=== PATIENT | female | born 1990 | race Caucasian/White ===

== ENCOUNTER 2020-08-22 19:59 | Emergency (ER) | payer OTHER ==
[~2020-08-22] VITALS: Ht 177.8 cm; Wt 146.0 kg
[~2020-08-22 19:59] MED LIST: ACET-683 PO; IBUP80TA PO; PRENTAB9 PO
[2020-08-22 23:27] VITALS: BP 136/92
== END 2020-08-22 23:28 | disposition home or self-care (01) ==
LOC: M ED 19:59
DX: B34.8 Other viral infections of unspecified site (principal)

== ENCOUNTER 2020-10-25 03:22 | Emergency (ER) | payer OTHER ==
[~2020-10-25] VITALS: Ht 177.8 cm; Wt 139.7 kg
[2020-10-25] MEDS ORDERED: BUPR75TA5 PO (03:42)
[2020-10-25 04:18] LABS: BASO % 0.5 % (0.0-1.0); EOS % 0.4 % (0.0-3.0); HEMATOCRIT 44.8 % (36.0-47.0); HEMOGLOBIN 13.8 g/dl (12.0-15.5); LYMPH # 3.1 10^3/uL (1.5-5.0); LYMPH % 38.1 % (24.0-44.0); MEAN CORPUSCULAR HEMOGLOBIN 25.5 pg (27.0-33.0); MEAN CORPUSCULAR HGB CONC 30.8 g/dl (32.0-36.5); MEAN CORPUSCULAR VOLUME 82.8 fl (80.0-96.0); MONO # 0.7 10^3/uL (0.0-0.8); MONO % 8.7 % (2.0-8.0); NEUTROPHILS # 4.2 10^3/uL (1.5-8.5); NEUTROPHILS % 51.9 % (36.0-66.0); PLATELET COUNT, AUTOMATED 297 10^3/uL (150-450); RED BLOOD COUNT 5.41 10^6/uL (4.00-5.40); WHITE BLOOD COUNT 8.1 10^3/uL (4.0-10.0)
[2020-10-25 04:40] LABS: ALBUMIN 3.6 GM/DL (3.2-5.2); ALT/SGPT 30 U/L (12-78); BILIRUBIN,DIRECT 0.1 MG/DL (0.0-0.2); BILIRUBIN,TOTAL 0.4 MG/DL (0.2-1.0); BLOOD UREA NITROGEN 12 MG/DL (7-18); CALCIUM LEVEL 9.1 MG/DL (8.5-10.1); CARBON DIOXIDE LEVEL 26 MEQ/L (21-32); CHLORIDE LEVEL 108 MEQ/L (98-107); GLOMERULAR FILTRATION RATE > 60.0 (>60); GLUCOSE, FASTING 89 MG/DL (70-100); LIPASE 206 U/L (73-393); POTASSIUM SERUM 3.8 MEQ/L (3.5-5.1); SODIUM LEVEL 141 MEQ/L (136-145); TOTAL PROTEIN 7.3 GM/DL (6.4-8.2)
[2020-10-25 05:01] LABS: HCG, SERUM QUALITATIVE NEGATIVE (NEGATIVE)
[2020-10-25] MEDS ORDERED: ONDANSETRON 4MG/2ML VIAL IV ONE (07:10)
--- NOTE | 2020-10-25 09:17 | REPVR ---
PROCEDURE INFORMATION: Exam: US Abdomen, Limited; Right Upper Quadrant Exam date and time: 10/25/2020 7:53 AM Age: 30 years old Clinical indication: Abdominal pain; Additional info: Suspected biliary colic TECHNIQUE: Imaging protocol: US abdomen. Real time ultrasound with image documentation. Limited exam focused on the right upper quadrant. COMPARISON: CT ABD PELVIS W/O CONTRAST 10/30/2015 1:32 PM FINDINGS: Liver: Normal. No masses. Normal vascular flow in the main portal vein towards the liver. Gallbladder: Normal. No gallstones. The gallbladder wall is normal. Common bile duct: The common bile duct is normal. No choledocholithiasis. The common bile duct measures 4.2 mm in diameter. Pancreas: Visualized pancreas is unremarkable. Right kidney: Normal right kidney measuring 11.7 x 4.7 x 5.1 cm. No mass. No hydronephrosis. Free fluid: No significant free fluid is seen in the right upper quadrant abdomen. IMPRESSION: No acute findings. Electronically signed by: Chris Ng On 10/25/2020 09:16:46 AM
[2020-10-25 09:31] VITALS: BP 118/56
--- NOTE | 2020-10-25 15:26 | ECGEPIP ---
[facility] - ED Test Date: 2020-10-25 Pat Name: BEVERLEY HOLLINGSWORTH Department: Room: - Gender: Female [employer] Machine: CHRISTEN : 1990 Requested By: JUAN NELSON Order Number: [id number] Reading MD: Lex Boyer Measurements Intervals Bath Rate: 67 P: 24 SD: 130 QRS: 3 QRSD: 90 T: 7 QT: 400 QTc: 422 Interpretive Statements Sinus rhythm with marked sinus arrhythmia Comparison tracing not on file Electronically Signed on 10-25-2020 15:26:09 EDT by Lex Boyer
== END 2020-10-25 09:59 | disposition home or self-care (01) ==
LOC: M ED 03:22
DX: R10.9 Unspecified abdominal pain (principal); R11.2 Nausea with vomiting, unspecified
CPT/HCPCS: 76705; 80048; 80076; 81001; 83690; 84703; 85025; 93005; 96374; 99285; J2405

== ENCOUNTER → 2021-03-02 | Outpatient (CLI) | payer OTHER ==
[~2021-03-02] MED LIST changes: +BUPR75TA5 PO
[2021-03-02 14:26] LABS: BASO % 0.3 % (0.0-1.0); EOS % 0.4 % (0.0-3.0); HEMATOCRIT 43.8 % (36.0-47.0); HEMOGLOBIN 13.6 g/dl (12.0-15.5); LYMPH # 2.9 10^3/uL (1.5-5.0); LYMPH % 29.1 % (24.0-44.0); MEAN CORPUSCULAR HEMOGLOBIN 26.5 pg (27.0-33.0); MEAN CORPUSCULAR HGB CONC 31.1 g/dl (32.0-36.5); MEAN CORPUSCULAR VOLUME 85.4 fl (80.0-96.0); MONO # 0.8 10^3/uL (0.0-0.8); NEUTROPHILS # 6.2 10^3/uL (1.5-8.5); PLATELET COUNT, AUTOMATED 308 10^3/uL (150-450); RED BLOOD COUNT 5.13 10^6/uL (4.00-5.40)
[2021-03-02 14:57] LABS: C REACTIVE PROTEIN QUANTITATIV 0.88 MG/DL (0.00-0.30); RHEUMATOID FACTOR QUANT < 10.0 IU/ML (<15.0)
[2021-03-02 15:21] LABS: ERYTHROCYTE SEDIMENTATION RATE 26 mm/hr (0-20)
[2021-03-03 19:07] LABS: ANTINUCLEAR ANTIBODIES DIRECT Negative (Negative); Lyme Disease IgG/IgM Antibodie <0.91 ISR (0.00-0.90); Lyme Disease IgM Ab Quantitati <0.80 index (0.00-0.79)
== END ==
LOC: M PLALAB 11:39
PROVIDERS: ATTEND Orthopaedic Surgery
DX: M25.562 Pain in left knee (principal)

== ENCOUNTER 2021-12-18 16:43 | Emergency (ER) | payer OTHER ==
[~2021-12-18] VITALS: Ht 175.3 cm; Wt 134.6 kg
[2021-12-18 16:44] VITALS: BP 109/69
[2021-12-18] MEDS ORDERED: OMEP40CA5 (17:11)
[2021-12-18] MEDS ORDERED: ONDA-83 (17:11)
[2021-12-18 18:37] LABS: BASO % 0.4 % (0.0-1.0); EOS % 0.4 % (0.0-3.0); HEMATOCRIT 42.2 % (36.0-47.0); HEMOGLOBIN 13.4 g/dl (12.0-15.5); LYMPH # 2.2 10^3/uL (1.5-5.0); LYMPH % 27.4 % (24.0-44.0); MEAN CORPUSCULAR HEMOGLOBIN 28.3 pg (27.0-33.0); MEAN CORPUSCULAR HGB CONC 31.8 g/dl (32.0-36.5); MONO # 0.7 10^3/uL (0.0-0.8); MONO % 8.9 % (2.0-8.0); NEUTROPHILS # 4.9 10^3/uL (1.5-8.5); NEUTROPHILS % 62.8 % (36.0-66.0); PLATELET COUNT, AUTOMATED 215 10^3/uL (150-450); RED BLOOD COUNT 4.74 10^6/uL (4.00-5.40); WHITE BLOOD COUNT 7.8 10^3/uL (4.0-10.0)
[2021-12-18 18:58] LABS: RBC, URINE 0-1 /hpf (0-3); SQUAMOUS EPITHELIAL CELL URINE LARGE AMOUNT /hpf (SMALL AMT)
[2021-12-18 18:59] LABS: BACTERIA, URINE NONE SEEN; HYALINE CAST, URINE NONE SEEN /lpf (0-1); MUCUS, URINE LARGE AMOUNT (NEGATIVE)
[2021-12-18 19:16] LABS: ALBUMIN 3.4 GM/DL (3.2-5.2); ALT/SGPT 156 U/L (12-78); BILIRUBIN,DIRECT 0.4 MG/DL (0.0-0.2); BILIRUBIN,TOTAL 0.7 MG/DL (0.2-1.0); BLOOD UREA NITROGEN 5 MG/DL (7-18); CALCIUM LEVEL 8.8 MG/DL (8.5-10.1); CARBON DIOXIDE LEVEL 26 MEQ/L (21-32); CHLORIDE LEVEL 107 MEQ/L (98-107); CREATININE FOR GFR 0.67 MG/DL (0.55-1.30); GLOMERULAR FILTRATION RATE > 60.0 (>60); GLUCOSE, FASTING 71 MG/DL (70-100); LIPASE 1892 U/L (73-393); POTASSIUM SERUM 3.9 MEQ/L (3.5-5.1); SODIUM LEVEL 139 MEQ/L (136-145); TOTAL PROTEIN 6.6 GM/DL (6.4-8.2)
== END 2021-12-18 20:48 | disposition left against medical advice (07) ==
LOC: M ED 16:43
DX: Z53.29 Procedure and treatment not carried out because of patient's decision for other reasons (principal)

== ENCOUNTER 2022-04-27 19:31 | Emergency (ER) | payer OTHER ==
[~2022-04-27] VITALS: Ht 172.7 cm; Wt 109.4 kg
[~2022-04-27 19:31] MED LIST changes: +OMEP40CA5; +ONDA-83
[2022-04-27 20:28] LABS: RED BLOOD COUNT 4.76 10^6/uL (4.00-5.40)
[2022-04-27 20:29] LABS: BASO % 0.1 % (0.0-1.0); HEMATOCRIT 43.3 % (36.0-47.0); LYMPH # 0.7 10^3/uL (1.5-5.0); LYMPH % 9.9 % (24.0-44.0); MEAN CORPUSCULAR HEMOGLOBIN 29.4 pg (27.0-33.0); MEAN CORPUSCULAR HGB CONC 32.3 g/dl (32.0-36.5); MONO # 0.1 10^3/uL (0.0-0.8); MONO % 1.6 % (2.0-8.0); NEUTROPHILS # 6.1 10^3/uL (1.5-8.5); NEUTROPHILS % 88.1 % (36.0-66.0); PLATELET COUNT, AUTOMATED 261 10^3/uL (150-450)
[2022-04-27 21:01] LABS: ALBUMIN 3.8 G/DL (3.2-5.2); ALKALINE PHOSPHATASE 112 U/L (46-116); ALT/SGPT 35 U/L (7.0-40); AST/SGOT 54 U/L (<34); BILIRUBIN,DIRECT 0.2 MG/DL (<0.4); BILIRUBIN,TOTAL 0.5 MG/DL (0.3-1.2); BLOOD UREA NITROGEN 10 MG/DL (9-23); CALCIUM LEVEL 9.2 MG/DL (8.5-10.1); CARBON DIOXIDE LEVEL 24 MMOL/L (20-31); CHLORIDE LEVEL 103 MMOL/L (98-107); CREATININE FOR GFR 0.61 MG/DL (0.55-1.30); GLOMERULAR FILTRATION RATE > 60.0 (>60); GLUCOSE, FASTING 123 MG/DL (60-100); POTASSIUM SERUM 4.2 MMOL/L (3.5-5.1); SODIUM LEVEL 140 MMOL/L (136-145); TOTAL PROTEIN 7.1 G/DL (5.7-8.2)
[2022-04-27 21:10] LABS: HCG, SERUM QUALITATIVE NEGATIVE (NEGATIVE)
[2022-04-27 21:25] LABS: LIPASE 2476 U/L (12-53)
[2022-04-28 01:13] VITALS: BP 121/63
== END 2022-04-28 01:14 | disposition home or self-care (01) ==
LOC: M ED 19:31
DX: K80.70 Calculus of gallbladder and bile duct without cholecystitis without obstruction (principal); R74.8 Abnormal levels of other serum enzymes; Z98.84 Bariatric surgery status

== ENCOUNTER 2022-05-08 00:16 | Inpatient (IN) | payer OTHER ==
[~2022-05-08] VITALS: Ht 172.7 cm; Wt 111.6 kg
[2022-05-08 02:37] LABS: BASO % 0.2 % (0.0-1.0); EOS % 0.1 % (0.0-3.0); HEMATOCRIT 41.1 % (36.0-47.0); HEMOGLOBIN 13.4 g/dl (12.0-15.5); LYMPH # 2.2 10^3/uL (1.5-5.0); LYMPH % 13.5 % (24.0-44.0); MEAN CORPUSCULAR HEMOGLOBIN 29.8 pg (27.0-33.0); MEAN CORPUSCULAR HGB CONC 32.6 g/dl (32.0-36.5); MEAN CORPUSCULAR VOLUME 91.3 fl (80.0-96.0); MONO # 1.2 10^3/uL (0.0-0.8); MONO % 7.4 % (2.0-8.0); NEUTROPHILS # 12.6 10^3/uL (1.5-8.5); NEUTROPHILS % 78.4 % (36.0-66.0); PLATELET COUNT, AUTOMATED 248 10^3/uL (150-450)
[2022-05-08] MEDS ORDERED: ONDANSETRON 4MG 2ML VIAL IV ONE (02:40)
[2022-05-08] MEDS ORDERED: NS 1,000 ML IV ONE (02:40)
[2022-05-08] MEDS ORDERED: MORPHINE 4 MG/ML 1ML VIAL IV PRN (02:40)
[2022-05-08 03:03] LABS: ALBUMIN 3.4 G/DL (3.2-5.2); ALKALINE PHOSPHATASE 115 U/L (46-116); ALT/SGPT 33 U/L (7.0-40); AST/SGOT 78 U/L (<34); BILIRUBIN,DIRECT 0.5 MG/DL (<0.4); BLOOD UREA NITROGEN 12 MG/DL (9-23); CALCIUM LEVEL 8.8 MG/DL (8.5-10.1); CARBON DIOXIDE LEVEL 27 MMOL/L (20-31); CHLORIDE LEVEL 104 MMOL/L (98-107); CREATININE FOR GFR 0.79 MG/DL (0.55-1.30); GLOMERULAR FILTRATION RATE > 60.0 (>60); GLUCOSE, FASTING 117 MG/DL (60-100); POTASSIUM SERUM 4.1 MMOL/L (3.5-5.1); SODIUM LEVEL 139 MMOL/L (136-145); TOTAL PROTEIN 6.6 G/DL (5.7-8.2)
[2022-05-08 03:26] LABS: LIPASE > 3500 U/L (12-53)
[2022-05-08] MEDS ORDERED: HYDROMORPHONE HCL 0.5 MG/ 0.5 ML SYRINGE (J1170 PER 1) IV PRN ×2 (03:40→07:00)
[2022-05-08 04:21] LABS: AMPHETAMINES LEVEL URINE NEGATIVE (NEGATIVE); BARBITURATES URINE NEGATIVE (NEGATIVE); BENZODIAZEPINES URINE NEGATIVE (NEGATIVE); COCAINE METABOLITE URINE NEGATIVE (NEGATIVE); METHADONE URINE NEGATIVE (NEGATIVE); PHENCYCLIDINE URINE NEGATIVE (NEGATIVE)
[2022-05-08 04:22] LABS: CANNABINOIDS URINE NEGATIVE (NEGATIVE); OPIATES URINE POSITIVE (NEGATIVE)
[2022-05-08 05:16] LABS: RSV AMPLIFICATION NEGATIVE (NEGATIVE)
[2022-05-08] MEDS ORDERED: ISOVUE-370 76% 100ML VIAL As Ordered ONE (05:30)
[2022-05-08] MEDS ORDERED: LR 1,000 ML IV ONE (06:35)
[2022-05-08] MEDS ORDERED: ONDANSETRON 4MG 2ML VIAL IV PRN (06:35)
[2022-05-08] MEDS ORDERED: MORPHINE 2 MG/ML 1ML VIAL IV PRN (07:45)
[2022-05-08] MEDS ORDERED: HOME MED LIST COMPLETE! XX SCH (07:50)
[2022-05-08 08:52] LABS: HEMATOCRIT 40.8 % (36.0-47.0); HEMOGLOBIN 13.2 g/dl (12.0-15.5); MEAN CORPUSCULAR HEMOGLOBIN 29.9 pg (27.0-33.0); MEAN CORPUSCULAR HGB CONC 32.4 g/dl (32.0-36.5); MEAN CORPUSCULAR VOLUME 92.3 fl (80.0-96.0); PLATELET COUNT, AUTOMATED 227 10^3/uL (150-450); RED BLOOD COUNT 4.42 10^6/uL (4.00-5.40); WHITE BLOOD COUNT 11.7 10^3/uL (4.0-10.0)
[2022-05-08] MEDS: PANTOPRAZOLE 40MG VIAL IV SCH (09:05)
[2022-05-08] MEDS: cefTRIAXone SOD 1 GM in D5W MINI-BAG PLUS 50 ML IV SCH (09:05)
[2022-05-08 09:29] LABS: ALKALINE PHOSPHATASE 112 U/L (46-116); ALT/SGPT 38 U/L (7.0-40); AST/SGOT 54 U/L (<34); BILIRUBIN,TOTAL 0.5 MG/DL (0.3-1.2); BLOOD UREA NITROGEN 10 MG/DL (9-23); CALCIUM LEVEL 8.5 MG/DL (8.5-10.1); CARBON DIOXIDE LEVEL 25 MMOL/L (20-31); CHLORIDE LEVEL 104 MMOL/L (98-107); CREATININE FOR GFR 0.67 MG/DL (0.55-1.30); GLOMERULAR FILTRATION RATE > 60.0 (>60); GLUCOSE, FASTING 98 MG/DL (60-100); POTASSIUM SERUM 4.1 MMOL/L (3.5-5.1); SODIUM LEVEL 140 MMOL/L (136-145); TOTAL PROTEIN 5.9 G/DL (5.7-8.2)
[2022-05-08 10:10] VITALS: BP 113/74
[2022-05-08] MEDS: LR 1,000 ML IV SCH ×2 (10:25→14:35)
[2022-05-08] MEDS: HEPARIN SOD (PORCINE) 5000UNITS/ML 1ML VIAL/SYRINGE SC SCH ×2 (13:20→21:27)
[2022-05-08 14:00] VITALS: BP 112/72
[2022-05-08] MEDS: MORPHINE 2 MG/ML 1ML VIAL IV PRN ×2 (16:42→21:48)
[2022-05-08 20:45] VITALS: BP 117/65
[2022-05-09] MEDS: LR 1,000 ML IV SCH ×2 (01:54→06:35)
[2022-05-09] MEDS: MORPHINE 2 MG/ML 1ML VIAL IV PRN (02:05)
[2022-05-09] MEDS: HEPARIN SOD (PORCINE) 5000UNITS/ML 1ML VIAL/SYRINGE SC SCH (05:20)
[2022-05-09 05:57] LABS: HEMATOCRIT 36.8 % (36.0-47.0); MEAN CORPUSCULAR HEMOGLOBIN 30.2 pg (27.0-33.0); MEAN CORPUSCULAR HGB CONC 32.6 g/dl (32.0-36.5); MEAN CORPUSCULAR VOLUME 92.5 fl (80.0-96.0); PLATELET COUNT, AUTOMATED 192 10^3/uL (150-450); RED BLOOD COUNT 3.98 10^6/uL (4.00-5.40); WHITE BLOOD COUNT 8.3 10^3/uL (4.0-10.0)
[2022-05-09 06:00] VITALS: BP 121/54
[2022-05-09 06:21] LABS: MAGNESIUM LEVEL 1.7 MG/DL (1.8-2.4)
[2022-05-09 06:29] LABS: ALBUMIN 2.6 G/DL (3.2-5.2); ALKALINE PHOSPHATASE 96 U/L (46-116); ALT/SGPT 24 U/L (7.0-40); AST/SGOT 21 U/L (<34); BILIRUBIN,TOTAL 0.6 MG/DL (0.3-1.2); BLOOD UREA NITROGEN 7 MG/DL (9-23); CALCIUM LEVEL 8.4 MG/DL (8.5-10.1); CARBON DIOXIDE LEVEL 26 MMOL/L (20-31); CHLORIDE LEVEL 103 MMOL/L (98-107); CREATININE FOR GFR 0.69 MG/DL (0.55-1.30); GLOMERULAR FILTRATION RATE > 60.0 (>60); GLUCOSE, FASTING 73 MG/DL (60-100); POTASSIUM SERUM 4.3 MMOL/L (3.5-5.1); SODIUM LEVEL 139 MMOL/L (136-145); TOTAL PROTEIN 5.1 G/DL (5.7-8.2)
[2022-05-09] MEDS ORDERED: MORPHINE 2 MG/ML 1ML VIAL IV PRN (07:50)
[2022-05-09] MEDS ORDERED: KETOROLAC 30 MG/ML 1ML VIAL IV PRN (07:50)
[2022-05-09] MEDS ORDERED: ACETAMINOPHEN 500 MG TAB PO PRN (07:50)
[2022-05-09] MEDS: PANTOPRAZOLE 40MG VIAL IV SCH (09:00)
[2022-05-09] MEDS: cefTRIAXone SOD 1 GM in D5W MINI-BAG PLUS 50 ML IV SCH (09:00)
[2022-05-09] MEDS ORDERED: ACET-683 PO (09:18)
[2022-05-09] MEDS ORDERED: IBUP-1114 PO (09:18)
[2022-05-09] MEDS ORDERED: CEFD300C41 PO ×2 (09:18→10:26)
== END 2022-05-09 11:15 | disposition home or self-care (01) | DRG 282 ==
LOC: EDBD 00:16 → M ED 00:16 → M ED INP 06:32 → ENRESERV 08:04 → M MSPAV 10:08
PROVIDERS: ADMIT Internal Medicine; ATTEND Student in an Organized Health Care Education/Training Program
DX: K85.10 Biliary acute pancreatitis without necrosis or infection (principal); G43.909 Migraine, unspecified, not intractable, without status migrainosus; Z98.84 Bariatric surgery status; J45.909 Unspecified asthma, uncomplicated; N83.201 Unspecified ovarian cyst, right side; K80.20 Calculus of gallbladder without cholecystitis without obstruction; K21.9 Gastro-esophageal reflux disease without esophagitis; Z20.822 Contact with and (suspected) exposure to COVID-19; Z79.899 Other long term (current) drug therapy

== ENCOUNTER → 2022-06-07 | Outpatient (CLI) | payer OTHER ==
[~2022-06-07] MED LIST changes: +CEFD300C41 PO; +IBUP-1114 PO
== END ==
LOC: M LABSMTC 10:56
PROVIDERS: ATTEND Anesthesiology
DX: Z01.818 Encounter for other preprocedural examination (principal)

== ENCOUNTER 2022-06-12 08:48 | Day surgery (SDC) | payer OTHER ==
[~2022-06-12] VITALS: Ht 172.7 cm; Wt 103.0 kg
[2022-06-12] MEDS ORDERED: LR 1,000 ML IV SCH ×2 (09:35→12:05)
[2022-06-12] MEDS ORDERED: MIDAZOLAM INJ 2MG/2ML VIAL As Ordered ONE ×2 (09:44→12:11)
[2022-06-12] MEDS ORDERED: fentaNYL 250 MCG/5 ML INJECTION As Ordered ONE (09:44)
[2022-06-12] MEDS ORDERED: ONDANSETRON 4MG 2ML VIAL As Ordered ONE (09:44)
[2022-06-12] MEDS ORDERED: ROCURONIUM BROMIDE 50MG/5ML VIAL As Ordered ONE ×2 (09:45→11:15)
[2022-06-12] MEDS ORDERED: propofoL 200 MG/20 ML VIAL As Ordered ONE ×2 (09:45→11:51)
[2022-06-12] MEDS ORDERED: LIDOCAINE 2% 100MG/5ML SDV (FOR ANES.) As Ordered ONE (09:45)
[2022-06-12] MEDS ORDERED: KETOROLAC 60MG 2ML VIAL As Ordered ONE (09:49)
[2022-06-12] MEDS ORDERED: ACETAMINOPHEN 1000MG 100ML IV BAG As Ordered ONE (10:40)
[2022-06-12] MEDS ORDERED: ePHEDrine SULFATE 25 MG/5 ML(5MG/ML) SYRINGE As Ordered ONE (11:02)
[2022-06-12] MEDS ORDERED: SUGAMMADEX SODIUM 500 MG/5 ML VIAL (BRIDION) As Ordered ONE (11:02)
[2022-06-12] MEDS ORDERED: HYDROmorphone HCL 2MG/ML 1ML VIAL As Ordered ONE (11:27)
[2022-06-12] MEDS: BUPIVACAINE/EPIN 0.25% 30ML VIAL As Ordered ONE (11:56)
[2022-06-12] MEDS ORDERED: fentaNYL 100 MCG/2 ML INJECTION IV PRN (12:05)
[2022-06-12] MEDS ORDERED: MEPERIDINE 25 MG/ML 1ML VIAL IV PRN (12:05)
[2022-06-12] MEDS ORDERED: ONDANSETRON 4MG 2ML VIAL IV PRN (12:05)
[2022-06-12] MEDS ORDERED: fentaNYL 100 MCG/2 ML INJECTION As Ordered ONE (12:13)
[2022-06-12] MEDS: PERCOCET 5MG/325MG TAB PO PRN ×2 (12:27→13:02)
[2022-06-12] MEDS: HYDROMORPHONE HCL 0.5 MG/ 0.5 ML SYRINGE IV PRN ×2 (12:49→13:02)
[2022-06-12] MEDS ORDERED: NORCO, ANEXSIA 5/325MG TABLET (HYDROcodone/ACETAMINOPHEN) PO PRN (13:05)
[2022-06-12] MEDS ORDERED: METOCLOPRAMIDE INJ 10MG/2ML VIAL IV STA (13:27)
[2022-06-12 14:22] VITALS: BP 136/77
== END 2022-06-12 14:47 | disposition home or self-care (01) ==
LOC: M SDC 08:48
PROVIDERS: ATTEND Surgery
DX: K80.10 Calculus of gallbladder with chronic cholecystitis without obstruction (principal); Z98.84 Bariatric surgery status
CPT/HCPCS: 47562; 81025; 88304; J1100; J1170; J2250; J2405; J2765; J3010; S2900

== ENCOUNTER 2023-03-19 14:04 | Emergency (ER) | payer OTHER, SELFPAY ==
[~2023-03-19] VITALS: Ht 175.3 cm; Wt 95.9 kg
[2023-03-19 14:04] VITALS: BP 130/63; TEMP 99.7; O2SAT 99
[~2023-03-19 14:04] MED LIST changes: -CEFD300C41 PO; +CEFD300C42 PO
[2023-03-19] MEDS ORDERED: DULO1CAP6 (14:16)
== END 2023-03-19 15:13 | disposition left against medical advice (07) ==
LOC: M ED 14:04
DX: Z53.21 Procedure and treatment not carried out due to patient leaving prior to being seen by health care provider (principal)

== ENCOUNTER 2023-06-27 08:52 | Day surgery (SDC) | payer OTHER ==
[~2023-06-27] VITALS: Ht 177.8 cm; Wt 102.1 kg
[~2023-06-27 08:52] MED LIST changes: +B-12100010 PO; +CEFD1CAP9 PO; -CEFD300C42 PO; +DULO1CAP6 PO; +FOLI800C PO; +LIDOCAINE 2% 100MG/5ML SDV (FOR ANES.) As Ordered ONE; +ONDANSETRON 4MG 2ML VIAL As Ordered ONE; +folate; +propofoL 200 MG/20 ML VIAL As Ordered ONE
[2023-06-27] MEDS ORDERED: MIDAZOLAM INJ 2MG/2ML VIAL As Ordered ONE (09:10)
[2023-06-27] MEDS ORDERED: fentaNYL 100 MCG/2 ML INJECTION As Ordered ONE (09:10)
[2023-06-27] MEDS ORDERED: LR 1,000 ML IV SCH ×2 (09:15→10:45)
[2023-06-27] MEDS ORDERED: SUGAMMADEX SODIUM 500 MG/5 ML VIAL (BRIDION) As Ordered ONE (09:57)
[2023-06-27] MEDS ORDERED: ROCURONIUM BROMIDE 50MG/5ML VIAL As Ordered ONE (09:57)
[2023-06-27] MEDS ORDERED: ACETAMINOPHEN 1000MG 100ML IV BAG As Ordered ONE (10:20)
[2023-06-27] MEDS: CIPRODEX OTIC SUSP 7.5ML As Ordered ONE (10:24)
[2023-06-27] MEDS: COCAINE 4% 4ML NASAL SOLUTION BTL As Ordered ONE (10:30)
[2023-06-27] MEDS: OXYMETAZOLINE 0.05% NASAL SPRAY (AFRIN) As Ordered ONE (10:39)
[2023-06-27] MEDS ORDERED: fentaNYL 100 MCG/2 ML INJECTION IV PRN (10:45)
[2023-06-27] MEDS ORDERED: ONDANSETRON 4MG 2ML VIAL IV PRN (10:45)
[2023-06-27 11:34] VITALS: BP 138/80; TEMP 98.7; O2SAT 98
== END 2023-06-27 11:50 | disposition home or self-care (01) ==
LOC: M SDC 08:52
PROVIDERS: ATTEND Otolaryngology
DX: H69.83 Other specified disorders of Eustachian tube, bilateral (principal); J35.2 Hypertrophy of adenoids; F32.A Depression, unspecified; F41.9 Anxiety disorder, unspecified; Z79.899 Other long term (current) drug therapy; Z98.84 Bariatric surgery status
CPT/HCPCS: 69436; 81025; C9143; J0131; J1100; J2250; J2405; J3010

== ENCOUNTER 2023-07-04 00:51 | Observation (INO) | payer OTHER ==
[~2023-07-04] VITALS: Ht 177.8 cm; Wt 104.4 kg
[~2023-07-04 00:51] MED LIST changes: -LIDOCAINE 2% 100MG/5ML SDV (FOR ANES.) As Ordered ONE; -ONDANSETRON 4MG 2ML VIAL As Ordered ONE; -propofoL 200 MG/20 ML VIAL As Ordered ONE
[2023-07-04 01:32] LABS: BASO # 0.1 10^3/uL (0.0-0.2); BASO % 0.6 % (0.0-1.0); EOS % 0.3 % (0.0-3.0); HEMATOCRIT 39.3 % (36.0-47.0); HEMOGLOBIN 12.5 g/dl (12.0-15.5); LYMPH # 5.5 10^3/uL (1.5-5.0); LYMPH % 49.7 % (24.0-44.0); MEAN CORPUSCULAR HEMOGLOBIN 27.7 pg (27.0-33.0); MEAN CORPUSCULAR HGB CONC 31.8 g/dl (32.0-36.5); MEAN CORPUSCULAR VOLUME 87.1 fl (80.0-96.0); MONO # 0.7 10^3/uL (0.0-0.8); MONO % 6.1 % (2.0-8.0); NEUTROPHILS # 4.8 10^3/uL (1.5-8.5); NEUTROPHILS % 43.2 % (36.0-66.0); PLATELET COUNT, AUTOMATED 277 10^3/uL (150-450); RED BLOOD COUNT 4.51 10^6/uL (4.00-5.40); WHITE BLOOD COUNT 11.1 10^3/uL (4.0-10.0)
[2023-07-04] MEDS: NS 1,000 ML IV ONE (01:41)
[2023-07-04 02:06] LABS: AMPHETAMINES LEVEL URINE NEGATIVE (NEGATIVE); HCG, SERUM QUALITATIVE NEGATIVE (NEGATIVE)
[2023-07-04 02:07] LABS: BARBITURATES URINE NEGATIVE (NEGATIVE); BENZODIAZEPINES URINE NEGATIVE (NEGATIVE); CANNABINOIDS URINE NEGATIVE (NEGATIVE); COCAINE METABOLITE URINE NEGATIVE (NEGATIVE); METHADONE URINE NEGATIVE (NEGATIVE); OPIATES URINE NEGATIVE (NEGATIVE); PHENCYCLIDINE URINE NEGATIVE (NEGATIVE)
[2023-07-04 02:14] LABS: RSV AMPLIFICATION NEGATIVE (NEGATIVE)
[2023-07-04 02:20] LABS: CPK CREATINE PHOSPHOKINASE 80 U/L (34-145); SALICYLATE LEVEL < 3.0 MG/DL (<30)
[2023-07-04 02:21] LABS: ALBUMIN 3.5 G/DL (3.2-5.2); ALKALINE PHOSPHATASE 95 U/L (46-116); ALT/SGPT 15 U/L (7.0-40); AST/SGOT 28 U/L (<34); BILIRUBIN,DIRECT < 0.1 MG/DL (<0.4); BILIRUBIN,TOTAL 0.2 MG/DL (0.3-1.2); BLOOD UREA NITROGEN 10 MG/DL (9-23); CALCIUM LEVEL 8.4 MG/DL (8.5-10.1); CARBON DIOXIDE LEVEL 29 MMOL/L (20-31); CHLORIDE LEVEL 100 MMOL/L (98-107); GLOMERULAR FILTRATION RATE > 60.0 (>60); GLUCOSE, FASTING 93 MG/DL (60-100); POTASSIUM SERUM 3.8 MMOL/L (3.5-5.1); SODIUM LEVEL 135 MMOL/L (136-145); TOTAL PROTEIN 6.9 G/DL (5.7-8.2)
[2023-07-04 02:22] LABS: THYROID STIMULATING HORMONE 2.828 uIU/ML (0.55-4.78)
[2023-07-04 02:31] LABS: ETHYL ALCOHOL (ETHANOL) 0.325 % (0.000-0.010)
[2023-07-04] MEDS: OXAZEPAM 15MG CAP PO ONE (08:55)
[2023-07-04] MEDS ORDERED: HOME MED LIST COMPLETE! XX SCH (09:10)
[2023-07-04] MEDS ORDERED: ACET-683 PO (09:31)
[2023-07-04] MEDS ORDERED: MAALOX 30 ML SUSP *UDC PO PRN (10:30)
[2023-07-04] MEDS ORDERED: ACETAMINOPHEN TAB 650MG DOSE (2X325MG) PO PRN (10:30)
[2023-07-04] MEDS ORDERED: MOM 30ML SUSPENSION UDC PO PRN (10:30)
[2023-07-04] MEDS: THIAMINE 100 MG TAB PO SCH (11:23)
[2023-07-04] MEDS: FOLIC ACID 1MG TAB PO SCH (11:23)
[2023-07-04] MEDS: MULTIVITAMINS/MINERALS THERAP 1 TAB PO SCH (11:23)
[2023-07-04] MEDS: ENOXAPARIN 40MG/0.4ML SYRINGE (J1650 PER 10MG) SC SCH (11:24)
[2023-07-04] MEDS ORDERED: OXAZEPAM 15MG CAP PO SCH (14:00)
[2023-07-04] MEDS: LORazepam 2 MG TAB PO PRN (15:00)
[2023-07-04 17:30] VITALS: BP 113/63; TEMP 97.4; O2SAT 100
[2023-07-04 19:42] VITALS: BP 127/79; TEMP 97.2; O2SAT 100
[2023-07-04 20:00] VITALS: BP 127/79
[2023-07-04] MEDS: OXAZEPAM 15MG CAP PO SCH (20:13)
[2023-07-05] VITALS (7 sets, daily range): BP systolic 100–111; BP diastolic 55–65; TEMP 96.5–97.7; O2SAT 95–100
[2023-07-09] MEDS ORDERED: DULO1CAP6 PO (08:25)
[2023-07-09] MEDS ORDERED: NALT50TA4 PO (08:25)
[2023-07-09] MEDS ORDERED: ABIL1TAB13 PO (08:25)
== END 2023-07-05 17:09 ==
LOC: M ED 00:51 → EDBD 00:51 → M ED INP 10:39 → ENRESERV 15:55 → M PCU 17:31
PROVIDERS: ADMIT Student in an Organized Health Care Education/Training Program; ATTEND Student in an Organized Health Care Education/Training Program
DX: T43.222A Poisoning by selective serotonin reuptake inhibitors, intentional self-harm, initial encounter (principal); T51.0X2A Toxic effect of ethanol, intentional self-harm, initial encounter; F10.120 Alcohol abuse with intoxication, uncomplicated; R00.0 Tachycardia, unspecified; D72.829 Elevated white blood cell count, unspecified; F33.9 Major depressive disorder, recurrent, unspecified; J45.909 Unspecified asthma, uncomplicated; Z87.19 Personal history of other diseases of the digestive system; Z98.84 Bariatric surgery status; Z81.4 Family history of other substance abuse and dependence; Z81.8 Family history of other mental and behavioral disorders; Z62.810 Personal history of physical and sexual abuse in childhood; Z79.899 Other long term (current) drug therapy
CPT/HCPCS: 80048; 80076; 80143; 80307; 82077; 82550; 84443; 84703; 85025; 87631; 93005; 93041; 94760; 96360; 96361; 96372; 99285; J1650

== ENCOUNTER 2023-11-03 22:34 | Inpatient (IN) | payer OTHER, SELFPAY ==
[~2023-11-03] VITALS: Ht 177.8 cm; Wt 99.9 kg
[~2023-11-03 22:34] MED LIST changes: +ABIL1TAB13 PO; +NALT50TA4 PO
[2023-11-03] MEDS ORDERED: CHARCOAL ACTIVATED LIQUID 25GM/120ML BTL As Ordered ONE (22:42)
[2023-11-03] MEDS: CHARCOAL ACTIVATED LIQUID 25GM/120ML BTL PO ONE (23:01)
[2023-11-03 23:22] LABS: BASO % 0.5 % (0.0-1.0); EOS % 0.4 % (0.0-3.0); HEMATOCRIT 37.1 % (36.0-47.0); HEMOGLOBIN 11.8 g/dl (12.0-15.5); LYMPH # 4.3 10^3/uL (1.5-5.0); LYMPH % 57.4 % (24.0-44.0); MEAN CORPUSCULAR HEMOGLOBIN 25.5 pg (27.0-33.0); MEAN CORPUSCULAR HGB CONC 31.8 g/dl (32.0-36.5); MEAN CORPUSCULAR VOLUME 80.1 fl (80.0-96.0); MONO # 0.4 10^3/uL (0.0-0.8); MONO % 4.6 % (2.0-8.0); NEUTROPHILS # 2.8 10^3/uL (1.5-8.5); PLATELET COUNT, AUTOMATED 308 10^3/uL (150-450); RED BLOOD COUNT 4.63 10^6/uL (4.00-5.40); WHITE BLOOD COUNT 7.5 10^3/uL (4.0-10.0)
[2023-11-03 23:45] LABS: BARBITURATES URINE NEGATIVE (NEGATIVE); COCAINE METABOLITE URINE NEGATIVE (NEGATIVE); METHADONE URINE NEGATIVE (NEGATIVE); OPIATES URINE NEGATIVE (NEGATIVE)
[2023-11-03 23:46] LABS: AMPHETAMINES LEVEL URINE NEGATIVE (NEGATIVE); BENZODIAZEPINES URINE NEGATIVE (NEGATIVE); CANNABINOIDS URINE NEGATIVE (NEGATIVE); PHENCYCLIDINE URINE NEGATIVE (NEGATIVE)
[2023-11-03 23:47] LABS: ETHYL ALCOHOL (ETHANOL) 0.237 % (0.000-0.010)
[2023-11-03 23:49] LABS: ALBUMIN 3.8 G/DL (3.2-5.2); ALKALINE PHOSPHATASE 101 U/L (46-116); ALT/SGPT 12 U/L (7.0-40); AST/SGOT 13 U/L (<34); BILIRUBIN,DIRECT 0.1 MG/DL (<0.4); BILIRUBIN,TOTAL 0.4 MG/DL (0.3-1.2); BLOOD UREA NITROGEN 6 MG/DL (9-23); CALCIUM LEVEL 8.8 MG/DL (8.5-10.1); CARBON DIOXIDE LEVEL 21 MMOL/L (20-31); CHLORIDE LEVEL 108 MMOL/L (98-107); CPK CREATINE PHOSPHOKINASE 95 U/L (34-145); CREATININE FOR GFR 0.68 MG/DL (0.55-1.30); GLOMERULAR FILTRATION RATE > 60.0 (>60); GLUCOSE, FASTING 92 MG/DL (60-100); POTASSIUM SERUM 4.1 MMOL/L (3.5-5.1); SALICYLATE LEVEL < 3.0 MG/DL (<30); SODIUM LEVEL 141 MMOL/L (136-145); TOTAL PROTEIN 7.1 G/DL (5.7-8.2)
[2023-11-03 23:52] LABS: HCG, SERUM QUALITATIVE NEGATIVE (NEGATIVE); THYROID STIMULATING HORMONE 2.022 uIU/ML (0.55-4.78)
[2023-11-04] VITALS (7 sets, daily range): BP systolic 110–126; BP diastolic 70–79; TEMP 97.2–98.2; O2SAT 96–100
[2023-11-04] MEDS: NS 1,000 ML IV ONE (00:37)
[2023-11-04] MEDS: ACETYLCYSTEINE 15,000 MG in D5W 250 ML IV ONE (01:35)
[2023-11-04] MEDS ORDERED: ONDANSETRON 4MG 2ML VIAL As Ordered ONE (01:37)
[2023-11-04] MEDS: ONDANSETRON 4MG 2ML VIAL IV ONE (01:40)
[2023-11-04] MEDS ORDERED: LORazepam 2 MG TAB PO PRN (01:55)
[2023-11-04] MEDS ORDERED: DULO1CAP5 PO (02:11)
[2023-11-04] MEDS: THIAMINE 100 MG TAB PO SCH (02:15)
[2023-11-04] MEDS ORDERED: HOME MED LIST COMPLETE! XX SCH (02:15)
[2023-11-04] MEDS: ACETYLCYSTEINE 5,000 MG in D5W 500 ML IV ONE (03:55)
[2023-11-04] MEDS: NS 1,000 ML IV SCH (04:01)
[2023-11-04] MEDS: ONDANSETRON 4MG 2ML VIAL IV SCH (04:30)
[2023-11-04] MEDS ORDERED: ONDANSETRON 4MG 2ML VIAL IV SCH (06:00)
[2023-11-04 07:42] LABS: ALBUMIN 3.1 G/DL (3.2-5.2); ALKALINE PHOSPHATASE 79 U/L (46-116); ALT/SGPT 11 U/L (7.0-40); AST/SGOT 9 U/L (<34); BILIRUBIN,TOTAL 0.4 MG/DL (0.3-1.2); BLOOD UREA NITROGEN 7 MG/DL (9-23); CALCIUM LEVEL 7.9 MG/DL (8.5-10.1); CARBON DIOXIDE LEVEL 22 MMOL/L (20-31); CHLORIDE LEVEL 109 MMOL/L (98-107); CREATININE FOR GFR 0.62 MG/DL (0.55-1.30); GLOMERULAR FILTRATION RATE > 60.0 (>60); GLUCOSE, FASTING 93 MG/DL (60-100); POTASSIUM SERUM 4.1 MMOL/L (3.5-5.1); SODIUM LEVEL 141 MMOL/L (136-145); TOTAL PROTEIN 6.2 G/DL (5.7-8.2)
[2023-11-04] MEDS: MULTIVITAMINS/MINERALS THERAP 1 TAB PO SCH (08:57)
[2023-11-04] MEDS: ENOXAPARIN 40MG/0.4ML SYRINGE (J1650 PER 10MG) SC SCH (08:57)
[2023-11-04] MEDS: ONDANSETRON 4MG 2ML VIAL IV PRN (08:57)
[2023-11-04] MEDS: FOLIC ACID 1MG TAB PO SCH (08:58)
[2023-11-04] MEDS: ACETYLCYSTEINE 10,000 MG in D5W 1,000 ML IV ONE (08:58)
[2023-11-04 09:48] LABS: BILIRUBIN,DIRECT 0.1 MG/DL (<0.4)
[2023-11-04] MEDS ORDERED: Multivitamins PO (14:55)
[2023-11-04] MEDS ORDERED: THIA100TA PO (14:55)
[2023-11-04] MEDS ORDERED: FOLI1TAB11 PO (14:55)
== END 2023-11-04 15:43 | disposition home or self-care (01) | DRG 812 ==
LOC: M ED 22:34 → EDBD 22:34 → M ED INP 11-04 01:51 → M MSPAV 11-04 03:25
PROVIDERS: ADMIT Preventive Medicine Undersea and Hyperbaric Medicine; ATTEND Hospitalist
DX: T39.1X2A Poisoning by 4-Aminophenol derivatives, intentional self-harm, initial encounter (principal); F33.2 Major depressive disorder, recurrent severe without psychotic features; F10.229 Alcohol dependence with intoxication, unspecified; Z79.899 Other long term (current) drug therapy; Z81.3 Family history of other psychoactive substance abuse and dependence; Z81.8 Family history of other mental and behavioral disorders; F41.9 Anxiety disorder, unspecified; E66.9 Obesity, unspecified; K80.20 Calculus of gallbladder without cholecystitis without obstruction; Z68.31 Body mass index [BMI] 31.0-31.9, adult

== ENCOUNTER 2023-11-18 19:27 | Inpatient (IN) | payer OTHER ==
[~2023-11-18] VITALS: Ht 172.7 cm; Wt 101.3 kg
[~2023-11-18 19:27] MED LIST changes: +DULO1CAP5 PO; +FOLI1TAB11 PO; +Multivitamins PO; +THIA100TA PO
[2023-11-18] MEDS: NALOXONE 2MG/2ML SYRINGE IV ONE (19:43)
[2023-11-18 19:45] LABS: ABG HCO3 24.2 MMOL/L (22.0-26.0); ABG O2 SATURATION 98.3 % (95.0-99.0); ABG PARTIAL PRESSURE CO2 42.3 mmHg (35.0-45.0); ABG PARTIAL PRESSURE O2 120.9 mmHg (75.0-100.0); ABG STANDARD HCO3 23.7 MMOL/L. (22.0-26.0); ABG TOTAL CO2 25.5 MMOL/L (22.0-29.0); ABG pH (ARTERIAL) 7.376 UNITS (7.350-7.450)
[2023-11-18] MEDS: ONDANSETRON 4MG 2ML VIAL IV ONE (19:45)
[2023-11-18] MEDS: CHARCOAL ACTIVATED LIQUID 25GM/120ML BTL PO ONE (19:49)
[2023-11-18] MEDS: NS 1,000 ML IV ONE ×2 (19:49→23:05)
[2023-11-18 19:51] LABS: BASO % 0.5 % (0.0-1.0); EOS % 0.3 % (0.0-3.0); HEMATOCRIT 38.7 % (36.0-47.0); LYMPH # 2.9 10^3/uL (1.5-5.0); LYMPH % 45.9 % (24.0-44.0); MEAN CORPUSCULAR HEMOGLOBIN 25.5 pg (27.0-33.0); MEAN CORPUSCULAR VOLUME 82.3 fl (80.0-96.0); MONO # 0.3 10^3/uL (0.0-0.8); MONO % 5.3 % (2.0-8.0); NEUTROPHILS # 3.1 10^3/uL (1.5-8.5); NEUTROPHILS % 47.8 % (36.0-66.0); PLATELET COUNT, AUTOMATED 261 10^3/uL (150-450); WHITE BLOOD COUNT 6.4 10^3/uL (4.0-10.0)
[2023-11-18] MEDS ORDERED: DEXTROSE 50% 50ML SYRINGE As Ordered ONE (20:09)
[2023-11-18 20:21] LABS: ETHYL ALCOHOL (ETHANOL) 0.255 % (0.000-0.010)
[2023-11-18] MEDS ORDERED: PROPOFOL 1,000 MG/100 ML VIAL As Ordered ONE (20:21)
[2023-11-18 20:22] LABS: SALICYLATE LEVEL < 3.0 MG/DL (<30)
[2023-11-18 20:23] LABS: ALBUMIN 3.7 G/DL (3.2-5.2); ALKALINE PHOSPHATASE 98 U/L (46-116); ALT/SGPT 12 U/L (7.0-40); AST/SGOT 24 U/L (<34); BILIRUBIN,DIRECT < 0.1 MG/DL (<0.4); BILIRUBIN,TOTAL 0.3 MG/DL (0.3-1.2); BLOOD UREA NITROGEN 8 MG/DL (9-23); CALCIUM LEVEL 8.4 MG/DL (8.5-10.1); CARBON DIOXIDE LEVEL 24 MMOL/L (20-31); CHLORIDE LEVEL 106 MMOL/L (98-107); CREATININE FOR GFR 0.74 MG/DL (0.55-1.30); GLOMERULAR FILTRATION RATE > 60.0 (>60); GLUCOSE, FASTING 61 MG/DL (60-100); POTASSIUM SERUM 4.2 MMOL/L (3.5-5.1); SODIUM LEVEL 139 MMOL/L (136-145); TOTAL PROTEIN 6.9 G/DL (5.7-8.2)
[2023-11-18 20:25] LABS: THYROID STIMULATING HORMONE 4.643 uIU/ML (0.55-4.78)
[2023-11-18 20:26] LABS: CPK CREATINE PHOSPHOKINASE 74 U/L (34-145)
[2023-11-18] MEDS: propofoL 1,000 MG in IV 1 EA IV SCH (21:04)
[2023-11-18] MEDS: ETOMIDATE INJ 20MG/10ML VIAL IV STA (21:09)
[2023-11-18] MEDS: ROCURONIUM BROMIDE 50MG/5ML VIAL IV SCH (21:10)
[2023-11-18] MEDS: MIDAZOLAM INJ 2MG/2ML VIAL IV STA (21:20)
[2023-11-18] MEDS: MIDAZOLAM 100MG/100ML-0.9%NACL 100 MG in IV 1 EA IV SCH ×2 (21:43→23:37)
[2023-11-18 22:23] LABS: HCG, SERUM QUALITATIVE NEGATIVE (NEGATIVE)
[2023-11-18] MEDS ORDERED: MIDAZOLAM INJ 2MG/2ML VIAL IV PRN (22:30)
[2023-11-18] MEDS ORDERED: fentaNYL CITRATE/NaCl 1,000 MCG in IV 1 EA IV SCH (22:50)
[2023-11-18] MEDS ORDERED: FENTANYL DRIP LOCK BOX KEY 1 EACH XX PRN (22:50)
[2023-11-18] MEDS: THIAMINE 200MG 2ML VIAL IV ONE (22:51)
[2023-11-18] MEDS: MAG SULF 1GM/100ML (MAG RUN) 1 GM in IV 1 EA IV ONE (23:04)
[2023-11-18 23:13] VITALS: O2SAT 100
[2023-11-18] MEDS: ACETYLCYSTEINE 15,000 MG in D5W 250 ML IV ONE (23:41)
[2023-11-18] MEDS: fentaNYL CITRATE/NaCl 1,000 MCG in IV 1 EA IV SCH (23:42)
[2023-11-19] VITALS (56 sets, daily range): BP systolic 86–133; BP diastolic 50–83; TEMP 96.8–99.1; O2SAT 95–100
[2023-11-19] MEDS ORDERED: THIA100TA PO (00:41)
[2023-11-19] MEDS ORDERED: FOLI1TAB11 PO (00:41)
[2023-11-19] MEDS ORDERED: THERTAB52 PO (00:42)
[2023-11-19] MEDS ORDERED: HOME MED LIST COMPLETE! XX SCH (00:45)
[2023-11-19] MEDS ORDERED: FENTANYL DRIP LOCK BOX KEY 1 EACH XX PRN (01:10)
[2023-11-19 01:25] LABS: AMPHETAMINES LEVEL URINE NEGATIVE (NEGATIVE); BARBITURATES URINE NEGATIVE (NEGATIVE); BENZODIAZEPINES URINE NEGATIVE (NEGATIVE); COCAINE METABOLITE URINE NEGATIVE (NEGATIVE); METHADONE URINE NEGATIVE (NEGATIVE); OPIATES URINE NEGATIVE (NEGATIVE); PHENCYCLIDINE URINE NEGATIVE (NEGATIVE)
[2023-11-19] MEDS: NS 1,000 ML IV SCH (01:29)
[2023-11-19 01:31] LABS: CANNABINOIDS URINE POSITIVE (NEGATIVE)
[2023-11-19] MEDS: fentaNYL CITRATE/NaCl 1,000 MCG in IV 1 EA IV SCH (01:36)
[2023-11-19] MEDS ORDERED: ACETYLCYSTEINE 0 MG in D5W 500 ML IV ONE (02:10)
[2023-11-19] MEDS: ACETYLCYSTEINE 5,000 MG in D5W 500 ML IV ONE (03:16)
[2023-11-19 03:32] LABS: BLOOD UREA NITROGEN 7 MG/DL (9-23); CALCIUM LEVEL 7.1 MG/DL (8.5-10.1); CARBON DIOXIDE LEVEL 23 MMOL/L (20-31); CHLORIDE LEVEL 110 MMOL/L (98-107); CREATININE FOR GFR 0.65 MG/DL (0.55-1.30); GLOMERULAR FILTRATION RATE > 60.0 (>60); GLUCOSE, FASTING 97 MG/DL (60-100); MAGNESIUM LEVEL 1.9 MG/DL (1.8-2.4); POTASSIUM SERUM 4.3 MMOL/L (3.5-5.1); SODIUM LEVEL 141 MMOL/L (136-145)
[2023-11-19 06:02] LABS: ABG BASE EXCESS -6.7 (-2.0-2.0); ABG HCO3 18.6 MMOL/L (22.0-26.0); ABG O2 SATURATION 97.3 % (95.0-99.0); ABG PARTIAL PRESSURE CO2 36.1 mmHg (35.0-45.0); ABG PARTIAL PRESSURE O2 103.5 mmHg (75.0-100.0); ABG TOTAL CO2 19.7 MMOL/L (22.0-29.0); ABG pH (ARTERIAL) 7.329 UNITS (7.350-7.450)
[2023-11-19 06:37] LABS: HEMATOCRIT 34.5 % (36.0-47.0); HEMOGLOBIN 10.5 g/dl (12.0-15.5); MEAN CORPUSCULAR HEMOGLOBIN 25.4 pg (27.0-33.0); MEAN CORPUSCULAR HGB CONC 30.4 g/dl (32.0-36.5); MEAN CORPUSCULAR VOLUME 83.3 fl (80.0-96.0); PLATELET COUNT, AUTOMATED 270 10^3/uL (150-450); RED BLOOD COUNT 4.14 10^6/uL (4.00-5.40); WHITE BLOOD COUNT 7.3 10^3/uL (4.0-10.0)
[2023-11-19 07:02] LABS: ALKALINE PHOSPHATASE 81 U/L (46-116); ALT/SGPT 16 U/L (7.0-40); AST/SGOT 16 U/L (<34); BILIRUBIN,TOTAL 0.3 MG/DL (0.3-1.2); BLOOD UREA NITROGEN 7 MG/DL (9-23); CALCIUM LEVEL 7.9 MG/DL (8.5-10.1); CARBON DIOXIDE LEVEL 25 MMOL/L (20-31); CHLORIDE LEVEL 107 MMOL/L (98-107); CREATININE FOR GFR 0.69 MG/DL (0.55-1.30); GLOMERULAR FILTRATION RATE > 60.0 (>60); GLUCOSE, FASTING 83 MG/DL (60-100); POTASSIUM SERUM 4.1 MMOL/L (3.5-5.1); SODIUM LEVEL 139 MMOL/L (136-145); TOTAL PROTEIN 5.8 G/DL (5.7-8.2)
[2023-11-19] MEDS: ACETYLCYSTEINE 10,000 MG in D5W 1,000 ML IV ONE (07:58)
[2023-11-19] MEDS: ENOXAPARIN 40MG/0.4ML SYRINGE (J1650 PER 10MG) SC SCH (10:00)
[2023-11-19] MEDS ORDERED: CHLORASEPTIC SPRAY MT PRN (17:20)
[2023-11-19] MEDS ORDERED: CEPACOL LOZENGE PO PRN (17:20)
[2023-11-19] MEDS: CHLORASEPTIC SPRAY MT ONE (18:38)
[2023-11-19] MEDS: CEPACOL LOZENGE PO ONE (18:38)
[2023-11-20 04:21] VITALS: BP 106/56; TEMP 97.7; O2SAT 99
[2023-11-20 04:36] LABS: HEMATOCRIT 30.5 % (36.0-47.0); HEMOGLOBIN 9.5 g/dl (12.0-15.5); MEAN CORPUSCULAR HGB CONC 31.1 g/dl (32.0-36.5); MEAN CORPUSCULAR VOLUME 83.6 fl (80.0-96.0); PLATELET COUNT, AUTOMATED 190 10^3/uL (150-450); RED BLOOD COUNT 3.65 10^6/uL (4.00-5.40); WHITE BLOOD COUNT 8.2 10^3/uL (4.0-10.0)
[2023-11-20 05:07] LABS: ALBUMIN 2.6 G/DL (3.2-5.2); ALKALINE PHOSPHATASE 79 U/L (46-116); ALT/SGPT 10 U/L (7.0-40); AST/SGOT < 8 U/L (<34); BILIRUBIN,DIRECT 0.2 MG/DL (<0.4); BILIRUBIN,TOTAL 0.5 MG/DL (0.3-1.2); BLOOD UREA NITROGEN 6 MG/DL (9-23); CALCIUM LEVEL 7.8 MG/DL (8.5-10.1); CARBON DIOXIDE LEVEL 26 MMOL/L (20-31); CHLORIDE LEVEL 109 MMOL/L (98-107); CREATININE FOR GFR 0.67 MG/DL (0.55-1.30); GLOMERULAR FILTRATION RATE > 60.0 (>60); GLUCOSE, FASTING 79 MG/DL (60-100); POTASSIUM SERUM 3.6 MMOL/L (3.5-5.1); SODIUM LEVEL 139 MMOL/L (136-145)
[2023-11-20] MEDS: FOLIC ACID 1MG TAB PO SCH (09:41)
[2023-11-20] MEDS: THIAMINE 100 MG TAB PO SCH (09:41)
[2023-11-20 12:00] VITALS: BP 117/69; TEMP 97.3; O2SAT 100
[2023-11-20 19:40] VITALS: BP 113/63; TEMP 97.8; O2SAT 97
[2023-11-21] MEDS: ACETAMINOPHEN TAB 650MG DOSE (2X325MG) PO PRN (00:14)
[2023-11-21 04:07] VITALS: BP 108/62; TEMP 98.1; O2SAT 98
[2023-11-21 05:45] LABS: HEMATOCRIT 33.8 % (36.0-47.0); HEMOGLOBIN 10.4 g/dl (12.0-15.5); MEAN CORPUSCULAR HEMOGLOBIN 25.7 pg (27.0-33.0); MEAN CORPUSCULAR HGB CONC 30.8 g/dl (32.0-36.5); MEAN CORPUSCULAR VOLUME 83.5 fl (80.0-96.0); PLATELET COUNT, AUTOMATED 211 10^3/uL (150-450); RED BLOOD COUNT 4.05 10^6/uL (4.00-5.40); WHITE BLOOD COUNT 7.1 10^3/uL (4.0-10.0)
[2023-11-21 06:19] LABS: ALBUMIN 2.8 G/DL (3.2-5.2); ALKALINE PHOSPHATASE 83 U/L (46-116); ALT/SGPT < 9 U/L (7.0-40); AST/SGOT < 8 U/L (<34); BILIRUBIN,TOTAL 0.4 MG/DL (0.3-1.2); BLOOD UREA NITROGEN 7 MG/DL (9-23); CALCIUM LEVEL 8.3 MG/DL (8.5-10.1); CARBON DIOXIDE LEVEL 30 MMOL/L (20-31); CHLORIDE LEVEL 108 MMOL/L (98-107); CREATININE FOR GFR 0.64 MG/DL (0.55-1.30); GLOMERULAR FILTRATION RATE > 60.0 (>60); GLUCOSE, FASTING 82 MG/DL (60-100); POTASSIUM SERUM 3.7 MMOL/L (3.5-5.1); SODIUM LEVEL 141 MMOL/L (136-145); TOTAL PROTEIN 5.5 G/DL (5.7-8.2)
[2023-11-21] MEDS ORDERED: KETOROLAC 30 MG/ML 1ML VIAL IV ONE (13:45)
[2023-11-21 14:00] VITALS: BP 100/80; TEMP 97.7; O2SAT 98
[2023-11-21] MEDS: KETOROLAC TROMETHAMINE 10 MG TAB PO ONE (15:02)
== END 2023-11-21 16:32 | DRG 812 ==
LOC: M ED 19:27 → EDBD 19:27 → M ED INP 22:29 → M ICU 11-19 01:03 → M MSPAV 11-19 17:28
PROVIDERS: ADMIT Internal Medicine; ATTEND Internal Medicine Nephrology
PROC: 0BH17EZ Insertion of Endotracheal Airway into Trachea, Via Natural or Artificial Opening (ICD-10-PCS; principal; 2023-11-18)
PROC: 5A1935Z Respiratory Ventilation, Less than 24 Consecutive Hours (ICD-10-PCS; 2023-11-18)
DX: T45.0X2A Poisoning by antiallergic and antiemetic drugs, intentional self-harm, initial encounter (principal); J96.00 Acute respiratory failure, unspecified whether with hypoxia or hypercapnia; G92.8 Other toxic encephalopathy; F32.2 Major depressive disorder, single episode, severe without psychotic features; Z91.51 Personal history of suicidal behavior; J45.909 Unspecified asthma, uncomplicated; Z98.84 Bariatric surgery status; F10.129 Alcohol abuse with intoxication, unspecified; Z79.899 Other long term (current) drug therapy; F12.10 Cannabis abuse, uncomplicated; F41.9 Anxiety disorder, unspecified

== ENCOUNTER 2023-11-21 11:19 | Inpatient (IN) | payer OTHER ==
[~2023-11-21] VITALS: Ht 177.8 cm; Wt 95.5 kg
[~2023-11-21 11:19] MED LIST changes: +THERTAB52 PO
[2023-11-21] MEDS ORDERED: IBUPROFEN 400MG TAB PO PRN (14:55)
[2023-11-21] MEDS ORDERED: MAALOX 30 ML SUSP *UDC PO PRN (14:55)
[2023-11-21] MEDS ORDERED: LORazepam 2 MG TAB PO PRN (14:55)
[2023-11-21] MEDS ORDERED: MOM 30ML SUSPENSION UDC PO PRN (14:55)
[2023-11-21] MEDS ORDERED: diphenhydrAMINE 25MG CAP PO PRN (14:55)
[2023-11-21] MEDS ORDERED: OLANZapine ORAL DISINTEGRATING TAB 5MG PO PRN (14:55)
[2023-11-21 17:12] VITALS: BP 126/69
[2023-11-21] MEDS: THIAMINE 100 MG TAB PO SCH (21:32)
[2023-11-21] MEDS: traZODone 50 MG TAB PO PRN (21:32)
[2023-11-22 02:00] VITALS: BP 133/55
[2023-11-22 06:32] VITALS: BP 133/55; TEMP 97.7; O2SAT 96
[2023-11-22] MEDS ORDERED: HOME MED LIST COMPLETE! XX SCH (08:55)
[2023-11-22] MEDS: NICOTINE 14 MG/24 HR TRANSDERMAL TD SCH (09:00)
[2023-11-22] MEDS: FOLIC ACID 1MG TAB PO SCH (09:35)
[2023-11-22] MEDS: ACETAMINOPHEN TAB 650MG DOSE (2X325MG) PO PRN (09:35)
[2023-11-22] MEDS: MULTIVITAMINS/MINERALS THERAP 1 TAB PO SCH (09:35)
[2023-11-22] MEDS: DULoxetine 30MG CAPSULE (CYMBALTA) PO SCH (12:31)
[2023-11-22] MEDS: NALTREXONE 50 MG TAB PO SCH (12:31)
[2023-11-22 14:00] VITALS: BP 132/82
[2023-11-22] MEDS: ONDANSETRON 4MG ORAL DISINTEGRATING TAB SL PRN (14:14)
[2023-11-22 18:56] VITALS: BP 142/82; TEMP 98.7; O2SAT 100
[2023-11-23] MEDS ORDERED: FOLIC ACID 1MG TAB As Ordered ONE (08:37)
[2023-11-23] MEDS ORDERED: THIAMINE 100 MG TAB As Ordered ONE (08:37)
[2023-11-23] MEDS ORDERED: DULoxetine 30MG CAPSULE (CYMBALTA) As Ordered ONE (08:37)
[2023-11-23] MEDS ORDERED: NALTREXONE 50 MG TAB As Ordered ONE (08:37)
[2023-11-23] MEDS ORDERED: MULTIVITAMINS/MINERALS THERAP 1 TAB As Ordered ONE (08:37)
[2023-11-23 17:20] VITALS: BP 136/71; TEMP 98.6; O2SAT 100
[2023-11-24 06:21] VITALS: BP 120/58; TEMP 98.6; O2SAT 99
[2023-11-24 18:33] VITALS: BP 118/66; TEMP 98.9; O2SAT 99
[2023-11-25 06:27] VITALS: BP 104/61; TEMP 97.7; O2SAT 98
[2023-11-25] MEDS ORDERED: DULO1CAP6 PO (09:04)
[2023-11-25] MEDS ORDERED: TRAZ-252 PO (09:04)
[2023-11-25] MEDS ORDERED: NALT50TA4 PO (09:04)
[2023-11-25] MEDS ORDERED: NICO14PA TD (09:04)
[2023-11-25 18:15] VITALS: BP 121/63; TEMP 97.9; O2SAT 100
[2023-11-26 06:13] VITALS: BP 125/71; TEMP 97.1; O2SAT 99
== END 2023-11-26 13:05 | disposition home or self-care (01) | DRG 751 ==
LOC: M ED INP 16:36 → M PSY 16:39
PROVIDERS: ADMIT Student in an Organized Health Care Education/Training Program; ATTEND Student in an Organized Health Care Education/Training Program
DX: F33.1 Major depressive disorder, recurrent, moderate (principal); F10.20 Alcohol dependence, uncomplicated; F43.10 Post-traumatic stress disorder, unspecified; Z91.51 Personal history of suicidal behavior; Z56.6 Other physical and mental strain related to work; Z98.84 Bariatric surgery status; Z90.49 Acquired absence of other specified parts of digestive tract; Z81.8 Family history of other mental and behavioral disorders; Z87.891 Personal history of nicotine dependence; Z79.899 Other long term (current) drug therapy; F12.90 Cannabis use, unspecified, uncomplicated; J45.909 Unspecified asthma, uncomplicated; Z83.3 Family history of diabetes mellitus

== ENCOUNTER → 2023-11-27 | Outpatient (CLI) | payer OTHER ==
[~2023-11-27] MED LIST changes: +NICO14PA TD; +TRAZ-252 PO
== END ==
LOC: M OUTALCOH 07:51
PROVIDERS: ATTEND Psychiatry & Neurology Psychiatry
DX: F10.20 Alcohol dependence, uncomplicated (principal); F12.10 Cannabis abuse, uncomplicated

== ENCOUNTER → 2023-12-05 | Outpatient (RCR) | payer OTHER | LOC: M OUTALCOH 08:54 | PROVIDERS: ATTEND Psychiatry & Neurology Psychiatry | DX: F10.20 Alcohol dependence, uncomplicated (principal); F12.10 Cannabis abuse, uncomplicated ==

== ENCOUNTER 2024-01-04 08:40 | Outpatient (RCR) | payer OTHER | END 2024-01-05 | LOC: M OUTALCOH 08:40 | PROVIDERS: ATTEND Psychiatry & Neurology Psychiatry | DX: F10.20 Alcohol dependence, uncomplicated (principal); F12.10 Cannabis abuse, uncomplicated | CPT/HCPCS: G0397 ×3 ==

== ENCOUNTER → 2024-02-04 | Outpatient (RCR) | payer OTHER | LOC: M OUTALCOH 01-09 15:24 | PROVIDERS: ATTEND Psychiatry & Neurology Psychiatry | DX: F10.20 Alcohol dependence, uncomplicated (principal); F12.10 Cannabis abuse, uncomplicated ==

== ENCOUNTER 2024-03-03 14:00 | Outpatient (RCR) | payer OTHER | END 2024-03-06 | LOC: M OUTALCOH 14:00 | PROVIDERS: ATTEND Psychiatry & Neurology Psychiatry | DX: F10.20 Alcohol dependence, uncomplicated (principal); F12.10 Cannabis abuse, uncomplicated ==

== ENCOUNTER → 2024-04-17 | Outpatient (CLI) | payer OTHER | LOC: M OUTALCOH 07:57 | PROVIDERS: ATTEND Psychiatry & Neurology Psychiatry | DX: F10.20 Alcohol dependence, uncomplicated (principal) ==

== ENCOUNTER 2024-04-24 08:55 | Outpatient (RCR) | payer OTHER | END 2024-05-06 | LOC: M OUTALCOH 08:55 | PROVIDERS: ATTEND Psychiatry & Neurology Psychiatry | DX: F10.20 Alcohol dependence, uncomplicated (principal) ==

== ENCOUNTER → 2024-06-06 | Outpatient (RCR) | payer OTHER | LOC: M OUTALCOH 05-08 07:59 | PROVIDERS: ATTEND Psychiatry & Neurology Psychiatry | DX: F10.20 Alcohol dependence, uncomplicated (principal) | CPT/HCPCS: 99211; G0397 ==

== ENCOUNTER → 2024-07-04 | Outpatient (RCR) | payer OTHER | LOC: M OUTALCOH 06-12 11:54 | PROVIDERS: ATTEND Psychiatry & Neurology Psychiatry | DX: F10.20 Alcohol dependence, uncomplicated (principal) ==

== ENCOUNTER 2024-07-30 09:30 | Outpatient (RCR) | payer OTHER | END 2024-08-04 | LOC: M OUTALCOH 09:30 | PROVIDERS: ATTEND Psychiatry & Neurology Psychiatry | DX: F10.20 Alcohol dependence, uncomplicated (principal) ==

== ENCOUNTER → 2025-01-30 | Outpatient (CLI) | payer OTHER ==
[~2025-01-30] MED LIST changes: +BUPR-670 PO; +DULO60CA35 PO; +FERR1TAB8 PO
== END ==
LOC: M OUTALCOH 07:40
PROVIDERS: ATTEND Psychiatry & Neurology Psychiatry
DX: F10.20 Alcohol dependence, uncomplicated (principal); F12.20 Cannabis dependence, uncomplicated

== ENCOUNTER 2025-03-04 16:00 | Outpatient (RCR) | payer OTHER ==
[~2025-03-04 16:00] MED LIST changes: +BUPR-363 PO; -BUPR75TA5 PO
== END 2025-03-06 ==
LOC: M OUTALCOH 16:00
PROVIDERS: ATTEND Psychiatry & Neurology Psychiatry
DX: F10.20 Alcohol dependence, uncomplicated (principal); F12.10 Cannabis abuse, uncomplicated

== ENCOUNTER 2025-04-01 16:00 | Outpatient (RCR) | payer OTHER | END 2025-04-05 | LOC: M OUTALCOH 16:00 | PROVIDERS: ATTEND Psychiatry & Neurology Psychiatry | DX: F10.20 Alcohol dependence, uncomplicated (principal); F12.10 Cannabis abuse, uncomplicated ==

== ENCOUNTER 2025-05-01 12:53 | Outpatient (RCR) | payer OTHER | END 2025-05-06 | LOC: M OUTALCOH 12:53 | PROVIDERS: ATTEND Psychiatry & Neurology Psychiatry | DX: F10.20 Alcohol dependence, uncomplicated (principal); F12.10 Cannabis abuse, uncomplicated ==